=== PATIENT | male | born 1960 | race Caucasian/White ===

== ENCOUNTER 2023-09-18 09:52 | Day surgery (SDC) | payer OTHER ==
[~2023-09-18] VITALS: Ht 170.2 cm; Wt 68.0 kg
[2023-09-18] MEDS ORDERED: LIDOCAINE 2% 100 MG/5 ML UJET TP ONE (10:44)
[2023-09-18] MEDS ORDERED: fentaNYL citrate 0.05 MG/ML VIAL ONE (10:44)
[2023-09-18] MEDS ORDERED: fentaNYL citrate 0.05 MG/ML VIAL IVP ONE (15:30)
== END 2023-09-18 12:18 | disposition home or self-care (01) ==
LOC: MDS 09:52 → MMU 09:54 → MDS 12:18
PROVIDERS: ATTEND Internal Medicine Gastroenterology
DX: Z12.11 Encounter for screening for malignant neoplasm of colon (principal); K63.5 Polyp of colon; F17.210 Nicotine dependence, cigarettes, uncomplicated
CPT/HCPCS: 45385; J3010